=== PATIENT | male | born 1965 | race Caucasian/White ===

== ENCOUNTER 2019-09-02 07:50 | Day surgery (SDC) | payer OTHER ==
[~2019-09-02] VITALS: Ht 177.8 cm; Wt 111.1 kg
[~2019-09-02 07:50] MED LIST: LOSARTAN POTAS100 MG PO
--- NOTE | 2019-09-02 09:21 | NUR ---
Pt expressed that he was nervous. He stated that his was nervous as well and that she had left the hospital until her was done. Nursing staff will call her when procedure is complete. I spent time talking with pt simply to take his mind off of the procedure ahead. Prayed for pt at time of visit.
--- NOTE | 2019-09-02 10:29 | NUR ---
09/02/19 1029 Gladis Nelson 1001 PT ARRIVED IN PACU NON RESPONSIVE TO NOXIOUS STIMULI WITH OPA IN PLACE. CHIN LIFT HELD BY RN. 1026 PT REACTIVE TO NOXIOUS STIMULI. OPA REMOVED. ICE TO ABD.
[2019-09-02] MEDS ORDERED: NORCO 10-325 T1 EACH PO (11:38)
--- NOTE | 2019-09-02 12:35 | NUR ---
PATIENT ADVISED TO FOLLOW UP WITH HIS PCP FOR SLEEP STUDY. OFTEN DESATS WHILE SLEEPING
--- NOTE | 2019-09-02 12:58 | OR ---
[facility] [address], [place] [address] Signed DATE OF OPERATION: 09/02/2019 SURGEON: Colin Irby MD PREOPERATIVE DIAGNOSIS: Incarcerated umbilical hernia (3 cm). POSTOPERATIVE DIAGNOSIS: Incarcerated umbilical hernia (3 cm). PROCEDURE: Primary umbilical herniorrhaphy with intraabdominal Ventralex mesh (6.4 cm). ESTIMATED BLOOD LOSS: None. INDICATIONS: Howie is a 53-year-old gentleman, who over the last two or three years been having trouble with an umbilical hernia. He said it never goes back inside. 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 It is a lot of lifting and heavy work. He said the umbilical hernia is painful and it rubs on his overalls and has been causing a lot of pain. He went to his primary care provider. It was not reducible. He was asked to see me with respect to the above. Howie and I could not reduce the hernia in our office as well. I gave Howie a booklet on umbilical hernias and we looked that carefully together. He understands the nature of an umbilical hernia along with the difference between a primary suture repair and a mesh repair. He also understands the expected intraop and postop course. We did review the risks including, but not limited to bleeding, infection, scarring, change in contour of the skin, damage to bowel, infection of mesh requiring removal, recurrent hernias and chronic pain. He had expressed understanding and wished to proceed. DESCRIPTION OF PROCEDURE: I had met with Howie in our preop area and we both agreed on his umbilical hernia. We marked that appropriately. After this, Howie was taken in the operating room and placed in the supine position under general LMA anesthesia. He was given preoperative antibiotics along with subcutaneous heparin. SCDs were utilized. He was then prepped and draped in the usual sterile fashion. We utilized a standard infraumbilical transverse incision and carried that down and around the umbilical fascial defect bluntly with the cautery. The hernia sac was excised and passed off the field. A piece of fat, probably 3 cm wide by 4 to 5 cm in length had to be amputated and passed off the Electronically Signed By: COLIN IRBY MD 09/02/19 1258 PATIENT NAME: CHAUNCEY MAY OPERATIVE REPORT DATE OF : 65 REPORT #: [id number] PHYSICIAN: COLIN IRBY MD PCP: PAULO MARRERO MD REPORT IS CONFIDENTIAL AND NOT TO BE RELEASED WITHOUT AUTHORIZATION [facility] [address], [place] [address] Signed field. The rest of the incarcerated fat was reduced into the abdominal cavity. After this, a piece of round 6.4 cm Ventralex mesh was placed into the abdominal cavity and brought up flushed against the posterior abdominal wall. The fascial defect was then closed transversely with a running #1 Prolene suture. Several passes of the suture went through in place. The tab was cut flush with the abdominal wall. Local anesthetic was injected then into the abdominal wall and the subcutaneous tissues. The wound was irrigated and suctioned out until clear. The umbilical skin was held down to the umbilical wall with an interrupted 2-0 PDS suture. The dermis was reapproximated with interrupted 3-0 subcuticular Monocryl sutures. The skin edges were reapproximated with a running 5-0 fast absorbing plain gut suture. Dry gauze and tape were then applied. Chauncey was awakened from his anesthesia, extubated in the OR, and taken to the recovery room in stable condition. Colin Irby MD ALB/MODL /[id number] cc: MD Colin Mnaley MD Copies: PAULO MARRERO MD, ANDREW L MD ~ Electronically Signed By: COLIN IRBY MD 09/02/19 1258 PATIENT NAME: CHAUNCEY MAY OPERATIVE REPORT DATE OF : 65 REPORT #: [id number] PHYSICIAN: COLIN IRBY MD PCP: PAULO MARRERO MD REPORT IS CONFIDENTIAL AND NOT TO BE RELEASED WITHOUT AUTHORIZATION
== END 2019-09-02 12:20 | disposition home or self-care (01) ==
LOC: DS 07:50
PROVIDERS: Colon & Rectal Surgery
PROC: 0WUF0JZ Supplement Abdominal Wall with Synthetic Substitute, Open Approach (ICD-10-PCS; principal; 2019-09-02 09:15)
DX: K42.0 Umbilical hernia with obstruction, without gangrene (principal); I10 Essential (primary) hypertension; E66.01 Morbid (severe) obesity due to excess calories; Z68.35 Body mass index [BMI] 35.0-35.9, adult
CPT/HCPCS: 00750; C1781; J0330; J0690; J1100; J1644; J1885; J2250; J2405; J2704; J2765; J3010; J7121